=== PATIENT | male | born 1945 | race Caucasian/White ===

== ENCOUNTER → 2024-02-08 14:09 | Outpatient (CLI) | payer MEDICARE, OTHER, SELFPAY ==
--- NOTE | 2024-02-08 | DI.MRI.S_ITS ---
PROCEDURE: MR SHOULDER RT WO CON INDICATIONS: pain in R shoulder TECHNIQUE: Noncontrast oblique coronal T2 fast spin echo with fat saturation, oblique sagittal T1 spin echo and T2 fast spin echo with fat saturation, axial T1 spin echo and T2 fast spin echo with fat saturation through the shoulder. COMPARISON: [facility], CR, XR SHOULDER 2+ VIEWS BILATERAL, 01/22/2024, 14:29. FINDINGS: Image quality: Excellent. Rotator cuff: There is low grade partial thickness tear of the supraspinatus tendon involving the footprint. There is moderate supraspinatus tendinosis. Suspect calcific tendinitis of the supraspinatus tendon at the humeral attachment. No supraspinatus tendon retraction. There is mild infraspinatus, and subscapularis tendons without significant tear. Sagittal images demonstrate no rotator cuff muscle atrophy. Bones and bursae: No bone marrow contusions or fractures. Severe glenohumeral joint degeneration and moderate acromioclavicular joint degeneration. The acromion demonstrates conventional anatomy, without an os acromiale. There is [id number] glenohumeral joint effusion. Capsule and soft tissues: There is degenerative labral fraying. The long head of the biceps tendon demonstrates normal location and morphology. The rotator interval appears normal, without fibrosis. The coracohumeral ligament is normal in thickness. IMPRESSION: 1. Low-grade grade partial-thickness tear of the supraspinatus involving the footprint. Suspect calcific tendinitis of the supraspinatus tendon. 2. Mild infraspinatus and subscapularis tendinosis. 3. Severe glenohumeral joint degeneration. 4. Moderate acromioclavicular joint degeneration. 5. [id number] glenohumeral joint effusion. Dictated by: Jazmin Duke M.D. on 02/10/2024 at 14:42 Approved by: Jazmin Duke M.D. on 02/10/2024 at 16:27
== END ==
LOC: MRI 14:13
PROVIDERS: PCP Family Medicine; Referring Provider Orthopaedic Surgery; Visit Provider Orthopaedic Surgery
DX: M75.111 Incomplete rotator cuff tear or rupture of right shoulder, not specified as traumatic (principal); M19.011 Primary osteoarthritis, right shoulder; M25.411 Effusion, right shoulder; M25.511 Pain in right shoulder
CPT/HCPCS: 73221

== ENCOUNTER → 2024-02-20 07:36 | Outpatient (CLI) | payer MEDICARE, OTHER, SELFPAY ==
--- NOTE | 2024-02-20 07:40 | DI.CT.S_ITS ---
PROCEDURE: CT UE RT WO CON INDICATIONS: Primary osteoarthritis, right shoulder TECHNIQUE: Noncontrast 0.75 mm thick sections acquired from the acromioclavicular joint to the inferior scapula, with coronal and sagittal reformatting. COMPARISON: None. FINDINGS: Image quality: Excellent. Bones: Mild degenerative changes of the right acromioclavicular joint. Severe degenerative changes of the glenohumeral joint with severe joint space narrowing, and humeral head osteophytosis. There is remodeling of the glenoid with mild retroversion of the glenoid articular surface. No acute fracture or dislocation in the right shoulder. The visualized right ribs are unremarkable. Soft tissues: Small glenohumeral effusion. Large subcoracoid bursitis. Severe tenosynovitis of the extra-articular biceps tendon. No significant fatty atrophy of the rotator cuff musculature. No right axillary lymphadenopathy. Visualized right lung is unremarkable. Ascending thoracic aortic aneurysm, measuring 4.6 cm. IMPRESSION: 1. Mild degenerate change of the right acromioclavicular joint. Severe degenerative changes of the right glenohumeral joint with mild glenoid retroversion. 2. 4.6 cm ascending thoracic aortic aneurysm, incompletely evaluated. Recommend further evaluation with CT chest with intravenous contrast. Dictated by: Alexandra Crandall M.D. on 02/20/2024 at 10:11 Approved by: Alexandra Crandall M.D. on 02/20/2024 at 10:17
[2024-02-20 09:01] LABS: Add Manual Diff / Slide Review NO; Basophils Absolute Auto 100 /uL (0-100); Basophils Percent Auto 1.1 % (0-2); Eosinophils Absolute Auto 300 /uL (0-450); Eosinophils Percent Auto 3.8 % (2-4); Hematocrit 48.1 % (41-53); Hemoglobin 16.4 g/dL (13.5-17.5); Lymphocytes Absolute Auto 2000 /uL (1100-4500); Lymphocytes Percent Auto 30.2 % (25-40); Mean Corpuscular Hemoglobin 29.6 PG (26-34); Mean Corpuscular Volume 86.9 fL (80-100); Monocytes Absolute Auto 800 /uL (0-900); Monocytes Percent Auto 11.7 % (3-14); Neutrophils Absolute Auto 3600 /uL (1500-7000); Neutrophils Percent Auto 53.2 % (50-75); Platelet Count 190 X10^3/uL (150-400); Red Blood Cell Count 5.53 X10^6/uL (4.5-5.9); Red Cell Distribution Width 14.3 % (11.6-14.8); White Blood Cell Count 6.7 X10^3/uL (4.5-11.0)
[2024-02-20 09:25] LABS: BUN Creatinine Ratio 26.4 (6-22); Blood Urea Nitrogen 24 mg/dL (9-20); Calcium 9.4 mg/dL (8.4-10.2); Carbon Dioxide 28 mmol/L (22-32); Chloride 102 mmol/L (98-107); Estimated Glomerular Filt Rate > 60 mL/min (>60); Glucose 93 mg/dL (80-110); HEMOLYSIS < 15 (0-50); Potassium 4.7 mmol/L (3.4-5.1); Sodium 135 mmol/L (137-145)
== END ==
PROVIDERS: PCP Family Medicine; Referring Provider Orthopaedic Surgery; Visit Provider Orthopaedic Surgery
DX: Z01.818 Encounter for other preprocedural examination (principal); Z01.812 Encounter for preprocedural laboratory examination; M19.011 Primary osteoarthritis, right shoulder; M25.411 Effusion, right shoulder; M65.811 Other synovitis and tenosynovitis, right shoulder; M75.51 Bursitis of right shoulder; I71.21 Aneurysm of the ascending aorta, without rupture
CPT/HCPCS: 36415; 73200; 80048; 85025; 93005